=== PATIENT | female | born 1975 | race Caucasian/White ===

== ENCOUNTER 2019-12-01 20:27 | Emergency (ER) | payer SELFPAY ==
[~2019-12-01] VITALS: Ht 165.1 cm; Wt 99.8 kg
[2019-12-01 20:30] VITALS: BP 126/94
--- NOTE | 2019-12-01 20:30 | NUR ---
PT BIBA AND TAKEN TO BED 5
[2019-12-01] MEDS ORDERED: diphenhydrAMINE 50 MG/ML VIAL IM ONE (20:40)
[2019-12-01] MEDS ORDERED: LORazepam 2 MG/ML VIAL IM ONE (20:40)
[2019-12-01] MEDS ORDERED: HALOPERIDOL IM 5 MG/ML VIAL IM ONE (20:40)
--- NOTE | 2019-12-01 20:45 | NUR ---
PT WAS AGITATED AND COMBATIVE, DID NOT COOPERATE WITH EKG TEST.
--- NOTE | 2019-12-01 20:59 | NUR ---
URINE SAMPLE OBTAINED AND LEFT FOR LAB
--- NOTE | 2019-12-01 21:00 | NUR ---
44 Y/O FEMALE BIBA BLS C/O ETOH; PER EMS PT WAS AT [employer] AND HAS BEEN DRINKING SINCE 5PM AND STARTED NOT RESPONDING TO QUESTIONS, SO PT BROUGHT TO ER; DENIES N/V/D; SKIN IS PINK/WARM/DRY; AAOX4 ; HR EVEN AND REGULAR; PT DENIES ANY FEVER, CP, SOB, OR COUGH AT THIS TIME; PATIENT STATES PAIN OF 0/10 AT THIS TIME; VSS; PATIENT POSITIONED FOR COMFORT; HOB ELEVATED; BEDRAILS UP X2; BED DOWN AND LOCKED. ER MD MADE AWARE OF PT STATUS. PMH: [facility]
--- NOTE | 2019-12-01 21:00 | NUR ---
LAB AT BEDSIDE
[2019-12-01 21:09] LABS: BASOPHILS # (AUTO) 0.1 K/uL (0.00-0.22); BASOPHILS % (AUTO) 0.5 % (0.0-2.0); EOSINOPHILS # (AUTO) 0.4 K/uL (0-0.4); HEMATOCRIT 41.4 % (36-48); HEMOGLOBIN 13.7 g/dL (12.0-16.0); LYMPHOCYTES # (AUTO) 3.4 K/uL (2.5-16.5); MEAN CORPUSCULAR HEMOGLOBIN 30 pg (27-31); MEAN CORPUSCULAR HGB CONC 33 g/dL (33-37); MEAN CORPUSCULAR VOLUME 90.1 fL (80-94); MONOCYTES # (AUTO) 0.6 K/uL (0.8-1.0); MONOCYTES % (AUTO) 5.9 % (1.7-9.3); NEUTROPHILS # (AUTO) 6.4 K/uL (1.8-7.7); NEUTROPHILS % (AUTO) 58.6 % (42.2-75.2); PLATELET COUNT (AUTO) 354 K/uL (140-450); RED CELL DISTRIBUTION WIDTH 13.2 % (11.6-13.7); WHITE BLOOD COUNT (AUTO) 10.9 K/uL (4.8-10.8)
--- NOTE | 2019-12-01 21:10 | NUR ---
WILLIAN ([facility]) [phone]
[2019-12-01 21:23] LABS: BARBITURATE, URINE NEGATIVE ng/ml (NEG <=200); BENZODIAZEPINE, URINE NEGATIVE ng/mL (NEG <=200); CANNABINOID, URINE NEGATIVE ng/mL (NEG <=50); COCAINE, URINE NEGATIVE ng/mL (NEG <=300); OPIATE, URINE NEGATIVE ng/mL (NEG <=2000); PHENCYCLIDINE SCREEN,URINE NEGATIVE ng/mL (NEG <=25)
[2019-12-01 21:37] LABS: ANION GAP 18.9 (8-16); ASPARTATE AMINOTRANSFERASE 16 U/L (15-37); CARBON DIOXIDE 22.4 mmol/L (21-32); CHLORIDE 105 mmol/L (98-107); CREATININE 0.8 mg/dL (0.6-1.3); GFR ARICAN-AMERICAN 101 mL/min (>90); GLUCOSE 168 mg/dL (74-106); POTASSIUM 4.3 mmol/L (3.5-5.1); SALICYLATE < 2.8 mg/dL (2.8-20.0); SODIUM SERUM 142 mmol/L (136-145); TOTAL BILIRUBIN 0.2 mg/dL (0.0-1.0); UREA NITROGEN, BLOOD 6 mg/dL (7-18)
[2019-12-01 21:38] LABS: ACETAMINOPHEN < 0.5 ug/ml (10-30)
--- NOTE | 2019-12-01 21:47 | NUR ---
URINE PREG DONE
--- NOTE | 2019-12-01 22:05 | NUR ---
PT TAKEN TO CT VIA [facility]
--- NOTE | 2019-12-01 22:20 | NUR ---
PT RETURNED FROM CT
--- NOTE | 2019-12-01 22:24 | NUR ---
PT DISATTACHED HERSELF FROM MONITORING SYSTEM AND AMBULATED TO RESTROOM
--- NOTE | 2019-12-01 22:33 | NUR ---
PT AMBULATED BACK TO BED
--- NOTE | 2019-12-01 22:38 | NUR ---
PHONED PT'S SON, WILLIAN, AND HE WILL COME TO PICK PT UP
[2019-12-01 22:43] VITALS: BP 126/94
--- NOTE | 2019-12-01 22:44 | NUR ---
Patient discharged with v/s stable. Written and verbal after care instructions given and explained. Patient verbalized understanding. Ambulatory with steady gait. All questions addressed prior to discharge. Advised to follow up with PMD.
== END 2019-12-01 22:43 | disposition home or self-care (01) ==
LOC: MED 20:27
DX: F10.129 Alcohol abuse with intoxication, unspecified (principal); E11.9 Type 2 diabetes mellitus without complications; Y90.8 Blood alcohol level of 240 mg/100 ml or more
CPT/HCPCS: 36415; 70450; 80053; 80305; 81025; 85025; 93005; 96372; 99285; G0480; G0482; J1200; J1630; J2060